=== PATIENT | female | born 2005 | race Hispanic/Latino ===

== ENCOUNTER 2024-11-08 14:22 | Emergency (ER) | payer BC ==
[~2024-11-08] VITALS: Ht 165.1 cm; Wt 160.0 kg
[2024-11-08] MEDS ORDERED: MEDDOSEPAK PO (16:42)
[2024-11-08] MEDS ORDERED: ZPAK PO (16:42)
[2024-11-08 17:01] VITALS: BP 132/80
== END 2024-11-08 17:01 | disposition home or self-care (01) | DRG 153 ==
LOC: ED 14:22
DX: J06.9 Acute upper respiratory infection, unspecified (principal); F17.290 Nicotine dependence, other tobacco product, uncomplicated; Z20.822 Contact with and (suspected) exposure to COVID-19